=== PATIENT | male | born 1995 | race Caucasian/White ===

== ENCOUNTER 2017-01-27 19:27 | Emergency (ER) | payer SELFPAY ==
[~2017-01-27] VITALS: Ht 167.6 cm; Wt 69.3 kg
[2017-01-27 19:30] VITALS: BP 135/86; PULSE 64; RESP 16; TEMP 98.6
[2017-01-27] MEDS ORDERED: TETANUS/DIPHTHERIA TOXOID ADULT 0.5 ML VIAL IM ONE (20:00)
[2017-01-27] MEDS ORDERED: IBUPROFEN 600 MG TAB PO ONE (20:00)
--- NOTE | 2017-01-27 20:03 | PD ---
HPI . Left hand injury Chief Complaint: Injury Time Seen by Provider: 19:47 Travel History International Travel<30 days: No Contact w/Intl Traveler<30days: No Traveled to known affect area: No History of Present Illness HPI 21-year-old male patient presents emergency room for evaluation of a left hand injury that was sustained earlier today at work. Patient was working with a table saw that jerked back and hit his left hand. He has a laceration on the second digit of the left hand with mild edema around the laceration. Patient states the corner of the table saw hit his index finger. Patient has a small superficial scratch to the third digit. Patient denies any major medical history. Patient doesn't take any daily medication. Patient is unsure if he is up-to-date on his tetanus. [facility] Past Medical History Medical History: Denies Significant Hx Cardiovascular Problems: Yes Tetanus Vaccination: Unknown Influenza Vaccination: No Past Surgical History Eye Surgery: Yes (bilat as an infant) Tonsillectomy: Yes Social History Alcohol Use: Yes (social, but rare) Tobacco Use: No Substance Use: No Allergies-Medications (Allergen,Severity, Reaction): Coded Allergies: No Known Allergies (Unverified , 01/27/17) Review of Systems Except as stated in HPI: all other systems reviewed are Neg Physical Exam Narrative GENERAL: Well-nourished, well-developed 21-year-old male patient in no acute distress. Nontoxic appearing. SKIN: 0.5cm laceration in horizontal orientation to the second digit on the left hand. Small superficial scratch noted to the third digit on the left hand. HEAD: Normocephalic. Atraumatic. EYES: No scleral icterus. No injection or drainage. NECK: Supple, trachea midline. No JVD or lymphadenopathy. CARDIOVASCULAR: Regular rate and rhythm without murmurs, gallops, or rubs. RESPIRATORY: Breath sounds equal bilaterally. No accessory muscle use. GASTROINTESTINAL: Abdomen soft, non-tender, nondistended. MUSCULOSKELETAL: Left second digit and third digit mildly edematous. BACK: Nontender without obvious deformity. No CVA tenderness. Data Data Last Documented VS Vital Signs Date Time Temp Pulse Resp B/P (MAP) Pulse Ox O2 Delivery O2 Flow Rate FiO2 01/27/17 19:30 98.6 64 16 135/86 (102) Orders Orders Hand, Complete ([id number]) (01/27/17 19:54) Ice/Cold Pack (01/27/17 19:54) Ibuprofen (Motrin) (01/27/17 20:00) Tetanus/Diphtheria Tox Adult (Tetanus/Di (01/27/17 20:00) Wound Care (01/27/17 21:24) Ed Discharge Order (01/27/17 21:24) MDM Medical Decision Making Medical Screen Exam Complete: Yes Emergency Medical Condition: Yes Differential Diagnosis Differential diagnoses include but not limited to laceration, cellulitis, foreign body, fracture, contusion Narrative Course 21-year-old male patient presents for evaluation of left hand injury. X-ray of the left hand ordered and pending. Ice applied to left hand. Tetanus updated. Laceration on the second digit was cleaned thoroughly and repaired with a Steri-Strip. X-ray of the left hand shows no fracture or dislocation. Patient given Keflex prophylactically to the hand being a high-risk location. Patient discharged home with instructions to keep the wound clean and dry and return to the emergency Department with any worsening condition. Diagnosis Primary Impression: Finger laceration Qualified Codes: S61.211A - Laceration without foreign body of left index finger without damage to nail, initial encounter Referrals: Primary Care Physician Patient Instructions: Finger Laceration (GEN), General Instructions Additional Instructions: Please return to emergency department if your symptoms return or worsen. Follow up with your primary care provider. Take medications as prescribed. Keep wound clean and dry. Take suir-[id number] ibuprofen or Tylenol as needed for pain or fevers Med/Other Pt SpecificInfo: Prescription(s) given Scripts Cephalexin (Keflex) 250 Mg Cap 250 MG PO Q6H for Infection for 5 Days, #20 CAP 0 Refills Prov: JacksonMariana 01/27/17 Disposition: 01 DISCHARGE HOME Condition: Stable Mariana Paz Jan 27, 2017 20:03
--- NOTE | 2017-01-27 21:19 | RADRPT ---
EXAM DATE/TIME: 01/27/2017 20:02 [facility] COMPARISON: No previous studies available for comparison. INDICATIONS : Laceration to left hand from table saw MEDICAL HISTORY : None. SURGICAL HISTORY : None. ENCOUNTER: Initial ACUITY: 1 day PAIN SCORE: 3/10 LOCATION: Left posterior surface of 2nd and 3rd MCPJ FINDINGS: Three view examination of the left hand demonstrates no soft tissue swelling, dislocation, or fractur e. The carpal bones appear intact. The interphalangeal and metacarpophalangeal joints are intact. Bony mineralization is normal. CONCLUSION: No acute disease. Ben Neff MD on January 27, 2017 at 21:17 Board Certified Radiologist. This report was verified electronically.
[2017-01-27] MEDS ORDERED: CEPH-459 PO (21:27)
== END 2017-01-27 21:48 | disposition home or self-care (01) ==
LOC: PHEFT 19:27
DX: S61.211A Laceration without foreign body of left index finger without damage to nail, initial encounter (principal); W27.0XXA Contact with workbench tool, initial encounter; Z23 Encounter for immunization
CPT/HCPCS: 73130; 90471; 90714